=== PATIENT | female | born 1975 | race Two or more races ===

== ENCOUNTER 2017-12-11 09:49 | Emergency (ER) | payer SELFPAY ==
[~2017-12-11] VITALS: Ht 172.7 cm; Wt 120.0 kg
[2017-12-11 09:58] VITALS: BP 130/85
== END 2017-12-11 13:01 | disposition home or self-care (01) ==
LOC: ED 11:37
DX: S93.491A Sprain of other ligament of right ankle, initial encounter (principal); W01.0XXA Fall on same level from slipping, tripping and stumbling without subsequent striking against object, initial encounter; Y93.01 Activity, walking, marching and hiking; Y99.8 Other external cause status; Y92.89 Other specified places as the place of occurrence of the external cause
CPT/HCPCS: 99284